=== PATIENT | female | born 1950 | race Caucasian/White ===

== ENCOUNTER 2017-10-09 10:32 | Outpatient (CLI) | payer OTHER | END 2017-10-09 21:27 | disposition home or self-care (01) | LOC: SRD 10:32 | PROVIDERS: ATTEND Internal Medicine | DX: I70.8 Atherosclerosis of other arteries (principal); J43.9 Emphysema, unspecified | CPT/HCPCS: 70490 ==

== ENCOUNTER 2017-10-19 10:27 | Outpatient (CLI) | payer OTHER ==
[2017-10-19] MEDS ORDERED: IOHEXOL 100 ML IV ONE (11:17)
== END 2017-10-19 20:03 | disposition home or self-care (01) ==
LOC: SCT 10:27
PROVIDERS: ATTEND Internal Medicine
DX: J43.9 Emphysema, unspecified (principal); I70.90 Unspecified atherosclerosis; K11.20 Sialoadenitis, unspecified
CPT/HCPCS: 70491; Q9967

== ENCOUNTER 2017-11-24 09:55 | Outpatient (CLI) | payer OTHER | END 2017-11-24 21:11 | disposition home or self-care (01) | LOC: SUS 09:55 | PROVIDERS: ATTEND Internal Medicine | DX: E04.1 Nontoxic single thyroid nodule (principal) | CPT/HCPCS: 76536-TC ==

== ENCOUNTER 2021-03-15 10:03 | Outpatient (CLI) | payer OTHER | END 2021-03-15 20:03 | disposition home or self-care (01) | LOC: SRD 10:03 | PROVIDERS: ATTEND Internal Medicine | DX: M19.072 Primary osteoarthritis, left ankle and foot (principal); M77.32 Calcaneal spur, left foot; M89.8X7 Other specified disorders of bone, ankle and foot; M79.672 Pain in left foot ==